=== PATIENT | female | born 1940 | race Caucasian/White ===

== ENCOUNTER 2019-08-16 16:49 | Inpatient (IN) | payer OTHER ==
[~2019-08-16] VITALS: Ht 167.6 cm; Wt 57.1 kg
[2019-08-16 16:53] VITALS: BP 203/128; BP 208/89
[2019-08-16] MEDS ORDERED: RIVASTIGMINE1 EAC2 TRANSDERM (17:32)
[2019-08-16] MEDS ORDERED: ESCITALOPRAM OX10 MG PO (17:32)
[2019-08-16] MEDS ORDERED: ALENDRONATE SOD70 MG PO (17:33)
[2019-08-16] MEDS ORDERED: CLONAZEPAM 0.50.5 M1 PO (17:34)
[2019-08-16 17:38] LABS: URINE BILIRUBIN NEGATIVE (Negative); URINE BLOOD NEGATIVE (Negative); URINE CLARITY CLEAR; URINE COLOR YELLOW; URINE GLUCOSE-RANDOM* NEGATIVE (Negative); URINE KETONES NEGATIVE (Negative); URINE LEUKOCYTES-REFLEX TRACE (Negative); URINE NITRITE-REFLEX NEGATIVE (Negative); URINE PROTEIN (DIPSTICK) NEGATIVE (Negative); URINE UROBILINOGEN 0.2 E.U./dl (0.2-1.0)
[2019-08-16 17:40] LABS: ABSOLUTE NEUTROPHILS 4.9 thou/uL (1.4-8.2); BASOPHILS 0.7 % (0.0-2.0); EOSINOPHILS 1.3 % (0.0-3.0); HEMATOCRIT 45.2 % (37.0-47.0); HEMOGLOBIN 15.3 gm/dL (12.0-15.0); LYMPHOCYTES 16.4 % (24.0-44.0); MCH 29.8 pg (26.0-34.0); MCHC 33.7 g/dL (28.0-37.0); MCV 88.5 fL (80.0-100.0); MONOCYTES 11.2 % (1.0-8.0); PLATELET COUNT 328 thou/uL (150-400); POLYS 70.4 % (36.0-66.0); RBC 5.11 mil/uL (4.20-5.00); RDW 13.9 % (10.5-14.5)
[2019-08-16 17:43] LABS: ANION GAP 9 mmol/L (7-16); BUN 9 mg/dL (7-18); CALCIUM 9.6 mg/dL (8.5-10.1); CHLORIDE 101 mmol/L (98-107); CO2 27 mmol/L (21-32); CREATININE 0.6 mg/dL (0.6-1.0); GLUCOSE 101 mg/dL (74-106); POTASSIUM 4.3 mmol/L (3.5-5.1); SODIUM 137 mmol/L (136-145)
[2019-08-16 17:53] LABS: ALBUMIN 4.2 g/dL (3.4-5.0); SALICYLATE < 2.8 mg/dL (2.8-20.0); SGOT 21 U/L (15-37); SGPT 21 U/L (30-65); TOTAL BILIRUBIN 0.7 mg/dL (<0.1-1.0); TOTAL PROTEIN 7.5 g/dL (6.4-8.2); TROPONIN-I <0.06 ng/mL (<0.06)
[2019-08-16 18:00] LABS: AMP/METHAMP Negative (Negative); BARBITURATES Negative (Negative); METHADONE Negative (Negative); OPIATES Negative (Negative); PCP Negative (Negative)
--- NOTE | 2019-08-16 18:00 | NUR ---
THIS PORCELAIN WAXER CALLED [facility] AND REQUESTED VIDEOGAME DESIGNER TO COME DOWN TO ER FOR PT
[2019-08-16 18:13] LABS: BENZODIAZEPINES Negative (Negative); COCAINE Negative (Negative)
[2019-08-16 20:22] VITALS: BP 229/112
[2019-08-16 23:55] VITALS: BP 148/76
--- NOTE | 2019-08-17 02:06 | NUR ---
Pt. arrived to the unit for admission 08-16-19 at 2215. She was brought to the ED by her daughter Dodie for uncontrolled crying, not eating, not taking meds. regularly, and voiced thoughts that life is not worth living. She lives at [facility] going there about 1.5 months ago. She prior lived at her home and her of suicide, in the home, in front of her, about 2-3 months ago. They lived in the house over 40 yrs. She has had generalized feelings of not caring that started after that happened and symptoms progressively worsening. She said she would not carrying through and had no plan. She denied being depressed at the moment during assessment by this nurse and said the depression "comes and goes". She said she had been diagnosed with mild dementia when she requested being tested for this. She saw 6 days ago and was presribed Lexapro. She denied any thought of wanting to end her life at the time of assessment. She talked openly about her husbands passing. She says she walks down the street for excercise, she always has walked she said. She is A/O x3-4, has hx. of broken Rt. hip in March with 3 pins and physical therapy, occsaional discomfort rt. hip. She ambulates without cane or walker, continent, wears contact lense in Lft. eye, hard of hearing in Left ear with hearing aides (not present) from Meniere's disease she said. Her bp was high in the ED, here on admission cx=657/76, p=65, r=18, oxy. 97%, t=98.2. Her daughter Dodie Monae came up with the pt., is the DPOA, but the pt. signed the admission papers. She had a snack and juice then was sleeping, and has slept soundly.
--- NOTE | 2019-08-17 06:36 | NUR ---
Ethel slept good tonight on rounds checking and she said she slept well too. She awakened at about 0615 and was observed crying alone in her room. She was asked if she wanted to come to the day room for breakfast soon and she crying still said "I don't want to eat." " I don't want to talk anyone. I'll talk when you come here" She was asked what she was crying about and she answered "my ". She then c.o. of a "coffee headache" (not having coffee she meant) and asked to come to the dining room for breakfast and hot beverage and she said "no I'll just take some Tylenol then" and she did so.
[2019-08-17 08:14] VITALS: BP 147/75
--- NOTE | 2019-08-17 11:27 | NUR ---
ADM ZOFRAN 4MG PO FOR UPSET STOMACH AFTER SHE HAD LUNCH.
--- NOTE | 2019-08-17 11:58 | NUR ---
ASSUMED CARE OF PATIENT AT 0715 ON 08/17/2019. PATIENT IN DAYROOM QUIETLY SITTING WITH OTHER PATIENTS. ALERT & ORIENTED X3. COMPLAINS OF SLIGHT DISCOMFORT TO HIP AREA DUE TO PAST SURGERY. DENIES SI/HI/AND AVH.
--- NOTE | 2019-08-17 13:29 | EKG ---
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
[2019-08-17 20:00] VITALS: BP 149/81
[2019-08-17 20:07] VITALS: BP 149/81
--- NOTE | 2019-08-18 02:04 | NUR ---
PATIENT HAS BEEN OUT IN DINING ROOM FOR EVENING AND THEN TO BED. SHE HAS BEEN COOPERATIVE. SHE HAS C/O SCRATCHY THROAT AND CEPACHOL LOZENGE WAS GIVEN TO PT. PATIENT IS A/OX3. SHE IS AMBULATORY AND STEADY ON HER FEET. SHE DENIES SI/HI. SHE DENIES PAIN. SHE HAS BEEN COOPERATIVE AND PLEASANT. NO BEHAVIORS TONIGHT. VSS. SHE TAKES MEDS WHOLE AND DID ASK FOR CLONAZEPAM AT BEDTIME. BED IN LOW POSITION. PATIENT IS INDEPENDENT WITH CARES. CONTINUING TO MONITOR.
--- NOTE | 2019-08-18 07:00 | NUR ---
Assumed care of patient this am. Patient resting in her room. Patient is ambulatory. Patient takes medications whole with thin liquids. Patients affect is soft and relaxed. Patient is isolative. Patient calm, content and cooperative. Patients assessment reveals clear breath sounds, active bowel sounds, and s1 s2 heard with auscultation.
[2019-08-18 07:30] VITALS: BP 131/75
[2019-08-18 07:35] VITALS: BP 131/75
--- NOTE | 2019-08-19 05:00 | NUR ---
patient aox4 makes needs known. patient says she dont like been in the unit, patient denied all psych issues. patient had a flat affect, poor eye contact, good grooming and hygiene. patient in bed asleep at this time breathing regular and unlaboured.
[2019-08-19 07:30] VITALS: BP 141/74
[2019-08-19 09:28] VITALS: BP 141/74
--- NOTE | 2019-08-19 10:47 | NUR ---
Assumed care of patient this am. Patient awake and ambulating in the brown. Patient concerned about going home and upset that there was no newspaper to read. Patient was redirected and goals of treatment were presented to her from the nurse. Patient takes medications whole with fluids. Patient expresses sadness from losing her . Patients assessment shows clear breath sounds, active bowel sounds, and s1 s2 heard with auscultation.
[2019-08-19 20:33] VITALS: BP 139/75
[2019-08-19 23:51] VITALS: BP 139/75
--- NOTE | 2019-08-20 03:13 | NUR ---
PT OUT IN DAYROOM AT START OF SHIFT. QUIET BUT COOPERATIVE WITH ASSESSMENT. AFTER HS SNACKS RETURNED TO ROOM. NO HS MEDS. HAS SPENT THE BULK OF THE EVENING AND NIGHT RESTING QUIETLY OR SLEEPING THROUGH THE NIGHT.
[2019-08-20 09:24] VITALS: BP 122/75
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
[2019-08-20 11:07] VITALS: BP 122/75
--- NOTE | 2019-08-20 13:32 | NUR ---
Assume care 0700. Patient calm and cooperative. Pt took her medicaitons without any problem. Breakfast and lunch consumed 100 percent. Ambulates around with no issue. Denies pain. Will continue to monitor.
--- NOTE | 2019-08-20 15:45 | NUR ---
MANISHA attended a family meeting with pt, her daughter Dodie, her son in law Jr, and the psych doctor. After care was discussed and the psych doctor said he is okay with pt going to respite for a month or two and then be re-evaluate for ISL. Dodie said if possible she would like to do respite at [facility]. MANISHA contacted [facility] and spoke to Nadja at [phone]. She said she will make room for pt to be in a respite bed on the SNF side. She said she will contact pt's family after a referral from MANISHA is faxed to [phone]. MANISHA faxed a referral to the fax number given. MANISHA team will continue to follow pt during her stay on this unit.
[2019-08-20 20:00] VITALS: BP 122/75
--- NOTE | 2019-08-21 04:02 | NUR ---
PATIENT HAS BEEN CALM AND COOPERATIVE TONIGHT. SHE IS WANTING TO GO HOME. SHE SAYS SHE'S NOT BAD OFF THESE OTHER PEOPLE AND FEELS LIKE SHE NEEDS TO GO TO ANOTHER UNIT OR HOME. PATIENT IS SLEEPING SOUND AND HAS DENIED SI/HI. PATIENT STAYED UP IN DINING ROOM TONIGHT UNTIL AFTER HER HS SNACK. SHE DENIES PAIN. WILL CONTINUE TO MONITOR.
[2019-08-21 08:00] VITALS: BP 147/82
--- NOTE | 2019-08-21 08:00 | NUR ---
PT PLEASANT TODAY. PT DENIES ANY PAIN AT THIS TIME. PT UP AD SKINNY WITHOUT ANY ISSUES. PT ALERT AND ORIENTED. PT STATED GOAL IS TO GET LIVE THROUGH THE DAY AND GET A SHOWER.
--- NOTE | 2019-08-21 12:28 | NUR ---
MANISHA received a call from Nadja with [facility] stating she has not received referral. She confirmed fax number is [phone]. MANISHA refaxed the referral along with confirmation page to the number given. SW team will continue to follow pt during her stay on this unit.
[2019-08-21 20:10] VITALS: BP 157/81
--- NOTE | 2019-08-22 04:15 | NUR ---
ASSUMED CARE OF PATIENT AT APPROXIMATELY 1915 ON 08/21/19, SHE APPEARS IN THE MILIEU WITH A EUTHYMIC AFFECT, INTERACTING WELL WITH OTHERS, AND APPEARS NICELY GROOMED. SHE REPORTS TO THIS NURSE 'IM DOING PRETTY WELL, AND HOW ARE YOU,' SHE DENIES SI HI AND HALLUCINATIONS. SHE DENIED FEELINGS OF DEPRESSION AND ANXIETY, ALBEIT DID APPEAR TO HAVE A DECEITFUL TONE AND AFFECT WHEN ANSWERING THIS QUESTION. SHE DENIED MEDICAL CONCERNS WITH NO S/S OF DISTRESS. NURSING WILL MAINTAIN ALL PRECAUTIONS TO ENSURE SAFETY AT ALL TIMES.
--- NOTE | 2019-08-22 07:30 | NUR ---
ASSUMED CARE OF PATIENT THIS AM. PATIENT CALM, CONTENT AND PLEASANT. PATIENT STATES THAT SHE IS EXPERIENCING SOME MILD ANXIETY. PATIENTS AFFECT SOFT AND RELAXED. PATIENT AMBULATES WITHOUT ASSISTANCE. PATIENT APPEARANCE IS NEAT AND CLEAN. PATIENTS ASSESSMENT SHOWS CLEAR BREATH SOUNDS, ACTIVE BOWEL SOUNDS, AND S1 S2 HEARD WITH AUSCULTATION.
[2019-08-22 08:00] VITALS: BP 121/77
[2019-08-22 08:57] VITALS: BP 121/77
--- NOTE | 2019-08-22 10:57 | NUR ---
MANISHA received a call from [facility] an update on [facility]'s discharge. She said she came and did an assessment with patient. MANISHA provided her an update on pt attending respite for at least a month, and that the soonest she would be d/c is Tuesday. SW team will continue to follow pt during her stay on this unit.
[2019-08-22 11:02] VITALS: BP 121/77
--- NOTE | 2019-08-22 12:40 | NUR ---
MANISHA was approached by Dodie after she visited her mother. Dodie said that she spoke with [facility] and was told that there is less supervision on the SNF side then there is on the ASL side and wants to maybe pursue ASL. She said she wants to stay with [facility] but was told they have a waiting list. MANISHA gave her a listing of NH and told her she will contact [facility] and find out what is going on. MANISHA called Martha back and was told that [facility] does have spots. She said it is Nadja who arranges that and will have her call. Nadja contacted MANISHA and said not only do they not have beds but they have a waiting list. She said the SNF has more supervision; she said rather SNF or ASL pt can leave the facility if she likes. She said Dodie mentioned to her she is concerned about her mom having the ability to leave. However, on the SNF side pt has to sign herself out which would give staff an opportunity to attempt to redirect from walking to the store and get alcohol. Also, pt is not allowed to bring alcohol in the SNF side and would not have access to it unless her family brought it in. MANISHA provided Dodie an update on her and Nadja's conversation. She said she needs to take this information back to her siblings to discuss.
--- NOTE | 2019-08-22 15:22 | NUR ---
Sylvie with [facility] came onto the unit. MANISHA informed her that Martha with [facility] came out to see her yesterday. She said that Martha is a rep and not with [facility] and she is. Manisah asked her if she was visiting on business, and she said she was not. MANISHA provided her the visiting hours and explained that unless it is on business visiting should happen during visiting hours. MANISHA also told her that if she cannot do the visiting hours, to please call her so she can make sure the nurses and the pt knows she will be coming. MANISHA also gave her business cared to Sylvie. MANISHA team will continue to follow pt during her stay on this unit.
--- NOTE | 2019-08-22 16:47 | NUR ---
Date of Admission: 08/16/19 Date of Activity Therapy Assessment: 08/18/2019 Activity Goal:One RT group per day Initial Goal: Pt to attend at least one RT group per day to aid in the development of positve coping skills. Weekly progress towards goal:Did not achieve- partly due to lack of group offered-staffing issue) Group participation level: Full when present Behaviors observed:Pt is experiencing intense feelins of grief and anger about her husbands suicide. Pt is able to communicate her feelings well. Pt gets easily agitated by peers who do not respect her boundaries. Plan: No change towards goal
[2019-08-22 19:13] VITALS: BP 116/65
[2019-08-22 21:00] VITALS: BP 116/65
--- NOTE | 2019-08-23 04:36 | NUR ---
PATIENT HAS BEEN A/OX 4 TONIGHT. SHE BEGAN CRYING WHEN I ASKED IF SHE WAS FEELING SAD. SHE STATES SHE IS THINKING ABOUT HER AND THE MOVIE ON TV, "PRETTY WOMAN" MADE HER THINK OF HIM. WE DISCUSSED THE IMPORTANCE OF GRIEVING AND LETTING HERSELF CRY OR EXPERIENCE EMOTIONS SHE IS GRIEVING. SHE STATES SHE HAS A TENDANCY TO TRY AND STUFF HER EMOTIONS. DISCUSSED HOW THIS CAN BE UNHEALTHY EMOTIONALLY. PATIENT WAS CONSOLABLE AND WENT ON WITH REST OF EVENING. SHE DID HAVE SOME RIGHT HIP PAIN BEFORE BED THAT WAS RELIEVED WITH TYLENOL 650MG. PATIENT HAS BEEN SLEEPING AND APPEARS RELAXED. PATIENT DENIES SI/HI. CONTINUING TO MONITOR.
[2019-08-23 08:39] VITALS: BP 115/70
--- NOTE | 2019-08-23 13:33 | NUR ---
Up ambulating in halls and participating in groups. Alert and orientated X4. States she is having some anxiety that is managable but that is gets worse in the evening. Becomes tearful and upset when discussing . Denies pain, SI/HI. Breath sounds clear t/o, bilaterally equal. Regular HR auscultated. Color pink with brisk capillary refill. Independent with voiding. Active bowel sounds over soft, flat abdomen. Participating in groups.
--- NOTE | 2019-08-23 17:57 | NUR ---
MANISHA received a vm from Dodie stating that she looked into [facility] and would like her mom to go there for placement. She says her mom has been upset at the thought of going back to [place]. MANISHA received an email from Mehul Stakr with [facility] asking for pieces of information including asking having a physician's form filled out. MANISHA gave this form to the nurse and talked to the psych doctor about it. Dodie talked with the psych doctor and asked if pt can stay until Tuesday so she can move her mom into [facility]. Psych doctor said that is find pending pt's insurance will allow for that time. SW team will continue to follow pt during her stay.
[2019-08-23 19:27] VITALS: BP 120/65
--- NOTE | 2019-08-24 03:51 | NUR ---
ASSUMED CARE OF PATIENT AT 1915 ON 08/23/19, SHE WAS OUT IN THE MILIEU UPON ONE TO ONE WITH THIS NURSE. SHE APPEARS WITH A LABILE AFFECT ET MOOD. SHE APPEARS WELL GROOMED. SHE INTERACTS WITH SELECT OTHERS, ANSWERS ASSESSMENT QUESTIONS APPROPRIATELY, DENIES SI HI AND HALLUCINATIONS. SHE DENIED MEDICAL CONCERNS WITH NO S/S OF DISTRESS. NURSING WILL MAINTAIN ALL PRECAUTIONS TO ENSURE SAFETY AT ALL TIMES.
[2019-08-24 10:26] VITALS: BP 144/76
--- NOTE | 2019-08-24 13:31 | NUR ---
VISIBLE IN DAYROOM READING BOOK DURING FREE TIME-DOES ATTEND SCHEDULED ACTIVITIES-TALKATIVE WITH NOTED SPONTANEOUS LAUGHING/SMILING DURING 1;1 INTERACTION WITH THIS RN. DENIES SI/SH/HI. NO NOTED OR REPORTED EPISODES OF TEARFULNESS SO FAR THIS SHIFT. IDENTIFIES FEELING "A LITTLE LONELY FOR SOCIAL INTERACTION PEERS ON UNIT NOT COHERENT IN CONVERSATION D/T CLINICAL CONDITIONS. DENIES C/O PAIN/PHYSICAL DISCOMFORT. APPETITE FAIR STATES STILL HAS TO "FORCE SELF" TO EAT SOMETIMES. DOES REPORT SOME MILD INITIAL INSOMNIA BUT FEELS THOUGH SLEEP IS IMPROVING PER PT REPORT. GAIT STEADY WITHOUT ASSISTIVE DEVICES.
--- NOTE | 2019-08-24 15:37 | NUR ---
DELPHINE assisted with the Plan of Care form and Dr foster signed it. This was faxed to [facility] [place] with her chest xray , H&P and face sheet. Delphine called and emailed [facility] to confirm this had been recieved
[2019-08-24 20:03] VITALS: BP 151/83
--- NOTE | 2019-08-25 03:41 | NUR ---
ASSUMED CARE OF PATIENT ON 08/24/19 AT 1915, PATIENT IS ALERT AND ORIENTED X4, SHE IS CALM AND COOPERATIVE WITH STAFF AND OTHER PATIENTS. SHE APPEARS WITH A BRIGHT AFFECT UPON ONE TO ONE. NO EMOTIONAL LABILITY OBSERVED THIS EVENING. SHE DENIES FEELINGS OF DEPRESSION, BUT DID REPORT FEELING ANXIOUS AND PRN ATIVAN WAS GIVEN ORDERED. SHE ALSO C/O INITIAL INSOMNIA, EDUCATED PATIENT PRN ATIVAN WOULD HELP HER SLEEP WELL, SHE AGREED THIS WAS A GOOD PLAN. SHE DENIED SI HI. SHE DENIED MEDICAL CONCERNS WITH NO S/S OF DISTRESS. NURSING WILL MAINTAIN Q12 CHECKS TO ENSURE SAFETY AT ALL TIMES.
[2019-08-25 07:50] VITALS: BP 118/62
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
[2019-08-25 21:09] VITALS: BP 155/79
--- NOTE | 2019-08-26 02:53 | NUR ---
ASSUMED CARE OF PATIENT AT [facility] 1915 ON 08/25/2019. SHE IS CALM AND COOPERATIVE, SMILING WITH A BRIGHT AFFECT, THANKING STAFF AND PEERS WHAT THEY HAVE DONE FOR. SHE IS PLEASANTLY COOOPEARTIVE APPERS TO BE APPRECIATIVE FOR STAFF AND OTHERS. SHE APPEARS WITH A BRIGHT SMILING AFFECT, GOOD RYTHMN AND RATE OF SPEECH, AND FUTURE FOCUSED. SHE REPORTS 'IM IM DOING WELL THANK YOU" SHE DENIES SI HI, WILL CONTINUE OT MONITOR MOOD FOR CHANGES PER REPORT SHE WAS LABILE AT LUNCH TIME. MADE NO MEDICAL CONCERNS CLEAR DOES NOT APPEAR TO BE IN DISTRESS. NURSING WILL MAINTAIN ALL PRECAUTIONS FOR SAFETY.
[2019-08-26 09:09] VITALS: BP 118/68
[2019-08-26 10:13] VITALS: BP 118/68
--- NOTE | 2019-08-26 10:26 | NUR ---
0650 CARE RESUMMED FROM OVERNIGHT SHIFT, PATIENT UP IN DAY ROOM INTERACTING WITH OTHERS. PATIENT ATE BREAKFAST AND TOOK MEDICATION WITHOUT INCIDENCE. PATIENT CALM, COOPERATIVE PARTICPATED IN GROUPS, WILL CONTINUE TO MONITOR PATIENT FOR SAFETY AND BEHAVIORS.
[2019-08-26 19:48] VITALS: BP 155/73
--- NOTE | 2019-08-27 01:22 | NUR ---
PATIENT HAS BEEN OUT IN DINING ROOM SOCIALIZING WITH OTHER WOMEN TONIGHT. AFTER THE BALL GAME SHE DID GO GET A BOOK SHE IS READING AND BROUGHT IT OUT AND SAT AT A TABLE BY HERSELF TO READ BEFORE BED. PATIENT DID HAVE A SOFT BROWN MODERATE STOOL TONIGHT. HER VSS. PATIENT IS SMILING TONIGHT AND COOPERATIVE AND PLEASANT. PATIENT DENIES SI/HI AND HALLUCINATIONS. THE RASH AROUND HER BRA UNDER HER ARMS IS CLEARING AND SHE DENIES PAIN OR ITCHING THERE. AREA LESS RED. STILL APPLYING [employer]STATIN POWDER ORDERED. PATIENT STATES SHE REALLY LIKES THE FOOD HERE AT THE HOSPITAL AND FEELS SHE IS GAINING WEIGHT. SHE SAYS SHE'S EATING LIKE SHE WAS SUPPOSED TO ALL HER LIFE. PATIENT IS STABLE. CONTINUING TO MONITOR.
--- NOTE | 2019-08-27 08:00 | NUR ---
PT UP AD SKINNY TODAY. PT TOLERATING DIET. PT STATED SHE GETS STUFFED HERE. PT DENIES ANY PAIN. PT COMPLIANT WITH CARE AND PARTICIPATES IN GROUPS. PT SOCIAL WITH OTHER RESIDENTS AND STAFF. DENIES SI AT THIS TIME.
--- NOTE | 2019-08-27 08:25 | NUR ---
PT TOOK MEDS WITHOUT ANY ISSUES.
[2019-08-27 08:58] VITALS: BP 113/71
--- NOTE | 2019-08-27 16:53 | NUR ---
MANISHA contacted [facility] to confirm discharge for tomorrow. Manisha spoke to Mehul who said pt discharging from [facility] at 1130 is fine. She asked that SW confirm with her daughter Dodie on transportation. MANISHA contacted Dodie. No answer. Lft msg. MANISHA spoke to Dodie while she was visiting with her mom. She said her and another sister are moving pt's furniture and that should be completed at 9am. She said 1130 tow picker is fine and she will be transporting pt. She said of reported to her that the chest xray or TB test is still needed. MANISHA contacted Mehul with [facility] who gave the fax number of [phone]. MANISHA faxed her a copy of pt's Chest xray. MANISHA team will continue to follow pt during her stay. [facility] [address] [place] [address] [place] [address] P [phone] F [phone]
[2019-08-27 19:33] VITALS: BP 127/66
[2019-08-27 21:30] VITALS: BP 127/66
--- NOTE | 2019-08-27 23:51 | NUR ---
PATIENT UP IN DINING ROOM THIS EVENING AND SOCIALIZING WITH OTHER FEMALE PATIENTS. SHE ASKED FOR A THROAT LOZENGE AT FOR DRY SORETHROAT. THIS DID HELP. PATIENT IS A/O X 4. SHE IS CALM AND COOPERATIVE. SHE AMBULATES ON HER OWN AND IS CONTINENT. SHE IS TO D/C TO [facility] IN [place] AT 1130 AM ON 08/28/19. PATIENT IS DOING WELL AND DENIES SI/HI. SHE IS SMILING MORE. BED IN LOW POSITION. CONTINUING TO MONITOR.
--- NOTE | 2019-08-28 08:00 | NUR ---
PT UP AD SKINNY THIS AM. PT ALWAYS SMILING. PT DENIES ANY SI OR HI. PT GOING TO DISCHARGE TODAY. PT TOLERATING DIET, COMPLIANT WITH MEDS AND GOES TO GROUP.
[2019-08-28 08:30] VITALS: BP 149/75
[2019-08-28 09:46] VITALS: BP 149/75
[2019-08-28] MEDS ORDERED: LORATIDINE 10 M10 M1 PO (10:34)
[2019-08-28] MEDS ORDERED: LEXAPRO 10 MG T10 MG PO (10:35)
[2019-08-28] MEDS ORDERED: NAMENDA 5 MG TAB5 M1 PO ×4 (10:36→10:37)
[2019-08-28] MEDS ORDERED: NYAMYC15 GM TOP (10:38)
--- NOTE | 2019-08-28 13:20 | NUR ---
FAMILY HERE TO TRANSFER PATIENT TO [facility]. PT AND FAMILY VERBALY UNDERSTOOD D/C ORDERS. WENT OVER MEDS AT DISCHARGE TO FAMILY. PT LEFT VIA AMBULATION TO CAR, DAUGHTER DRIVING. BELONGINGS GIVEN TO PT FAMILY.
--- NOTE | 2019-08-28 13:34 | NUR ---
GAVE REPORT TO SHANTI AT [facility].
== END 2019-08-28 13:30 | DRG 885 ==
LOC: ER 16:49 → SBH 19:50 → EROBS 19:50 → SBH 19:50
PROVIDERS: Emergency Medicine; ADMIT Psychiatry & Neurology Psychiatry
DX: F32.2 Major depressive disorder, single episode, severe without psychotic features (principal); E43 Unspecified severe protein-calorie malnutrition; R45.851 Suicidal ideations; F03.91 Unspecified dementia, unspecified severity, with behavioral disturbance; F41.9 Anxiety disorder, unspecified; M81.0 Age-related osteoporosis without current pathological fracture; M19.90 Unspecified osteoarthritis, unspecified site; Z68.20 Body mass index [BMI] 20.0-20.9, adult; Z88.0 Allergy status to penicillin; Z87.310 Personal history of (healed) osteoporosis fracture
CPT/HCPCS: 10880